=== PATIENT | female | born 1940 | race Caucasian/White ===

== ENCOUNTER 2020-04-08 21:51 | Inpatient (IN) | payer MEDICARE ==
[~2020-04-08] VITALS: Ht 160 cm; Wt 87.2 kg
[~2020-04-08 21:51] MED LIST: CEPH500C2 PO
[2020-04-08 22:51] LABS: BASOPHILS % (AUTO) 0.4 % (0.0-5.0); EOSINOPHILS % (AUTO) 2.1 % (0.0-8.0); HEMATOCRIT 35.6 % (36-48); LYMPHOCYTES % (AUTO) 15.1 % (21.0-51.0); MEAN CORPUSCULAR HEMOGLOBIN 31.1 pg (27.0-33.0); MEAN CORPUSCULAR VOLUME 97.3 fL (79-99); MONOCYTES % (AUTO) 6.2 % (3.0-13.0); NEUTROPHILS % (AUTO) 75.9 % (40.0-77.0); PLATELET COUNT (AUTO) 289 K/uL (130-400); RED BLOOD CELL COUNT(AUTO) 3.66 MIL/uL (4.00-5.50); RED CELL DISTRIBUTION WIDTH 13.6 % (11.0-15.5)
[2020-04-08] MEDS ORDERED: ONDANSETRON 4MG INJ ONE (22:51)
[2020-04-08] MEDS ORDERED: FUROSEMIDE 20MG VIAL ONE (22:51)
[2020-04-08 23:01] LABS: CREATININE 1.4 mg/dL (0.5-1.5); POTASSIUM 3.8 mmol/L (3.5-5.1)
[2020-04-08 23:03] LABS: INR 0.97 (0.85-1.15); PROTHROMBIN TIME 10.6 SEC (9.6-11.6)
[2020-04-08 23:05] LABS: PARTIAL THROMBOPLASTIN TIME 22.8 SEC (26.3-35.5)
[2020-04-08 23:14] LABS: ALBUMIN 3.2 g/dL (3.5-5.0); BILIRUBIN,TOTAL 0.4 mg/dL (0.2-1.0); THYROID STIMULATING HORMONE 1.74 uIU/mL (0.36-3.74); TOTAL PROTEIN, SERUM 6.7 g/dL (6.0-8.3)
[2020-04-08 23:32] LABS: APPEARANCE,URINE Clear (CLEAR); BILIRUBIN,URINE Negative (NEGATIVE); COLOR,URINE Yellow (YELLOW); GLUCOSE, URINE (UA) Negative (NEGATIVE); KETONES,URINE Negative (NEGATIVE); LEUKOCYTE ESTERASE ,URINE Trace (NEGATIVE); NITRATE,URINE Negative (NEGATIVE); OCCULT BLOOD,URINE Negative (NEGATIVE); PH,URINE 5.5 (5.0-8.0); PROTEIN,URINE POS 1+ mg/dL (NEGATIVE); UROBILINOGEN,URINE 0.2 mg/dL (0.2-1.0)
[2020-04-08 23:57] LABS: BACTERIA,URINE Rare /HPF (None Seen); RBC,URINE None Seen /HPF (0-1); SQUAMOUS EPITHELIAL CELL,UR Rare /HPF (0-2); WBC,URINE 0-1 /HPF (0-1)
[2020-04-09] MEDS ORDERED: LORAZEPAM 2 MG/ML 1 ML VIAL ONE (02:02)
[2020-04-09] MEDS ORDERED: DiphenhydrAMINE HCL 50 MG/ML VIAL IV PRN (02:30)
[2020-04-09] MEDS ORDERED: MAG/ALUM/SIMETH 30 ML UDCUP PO PRN (02:30)
[2020-04-09] MEDS ORDERED: ONDANSETRON 4MG INJ IV PRN (02:30)
[2020-04-09] MEDS ORDERED: ACETAMINOPHEN 325 MG TAB PO PRN ×2 (02:30)
[2020-04-09] MEDS ORDERED: DIPHENHYDRAMINE HCL 25 MG CAPSULE PO PRN (02:30)
[2020-04-09] MEDS ORDERED: NITROGLYCERIN 0.4 MG SL TAB SL PRN (02:30)
[2020-04-09] MEDS ORDERED: GUAIFENESIN-DM 200/20 MG 10 ML PO PRN (02:30)
[2020-04-09] MEDS: CEFTRIAXONE 1G VIAL IV SCH (02:30)
[2020-04-09] MEDS ORDERED: LACTULOSE 20 GM/30 ML UDCUP PO PRN (02:30)
[2020-04-09] MEDS ORDERED: LABETALOL 20MG SYG IV PRN ×2 (02:45→12:15)
[2020-04-09] MEDS ORDERED: CEFTRIAXONE 1G VIAL ONE (04:12)
[2020-04-09] MEDS ORDERED: LABETALOL 20MG VIAL IV ONE (04:12)
[2020-04-09] MEDS ORDERED: ACETAMINOPHEN 325 MG TAB ONE (04:52)
[2020-04-09] MEDS ORDERED: ENOXAPARIN SODIUM 40 MG/0.4 ML SYRINGE SQ ONE (08:04)
[2020-04-09] MEDS ORDERED: FUROSEMIDE 20MG VIAL ONE ×2 (08:04→08:15)
[2020-04-09] MEDS ORDERED: ASPIRIN 325 MG TABLET ONE (08:04)
[2020-04-09] MEDS ORDERED: LABETALOL 20MG SYG IV ONE (08:05)
[2020-04-09] MEDS ORDERED: METOPROLOL TARTRATE 25 MG TAB ONE (08:05)
[2020-04-09 10:43] LABS: CREATININE 1.6 mg/dL (0.5-1.5); MAGNESIUM 1.5 mg/dL (1.80-2.40); POTASSIUM 3.7 mmol/L (3.5-5.1)
[2020-04-09] MEDS ORDERED: TERA2CAP82 PO (10:55)
[2020-04-09] MEDS ORDERED: LOSA100T58 PO (10:55)
[2020-04-09] MEDS ORDERED: MAGNESIUM 2GM PREMIX 50ML 50 ML IV SCH (11:00)
[2020-04-09] MEDS ORDERED: PRAM1TAB7 PO (11:13)
[2020-04-09] MEDS ORDERED: DEXL60CA3 PO (11:13)
[2020-04-09] MEDS ORDERED: DULO30CA52 PO (11:13)
[2020-04-09] MEDS ORDERED: BUDE3CAP7 PO (11:13)
[2020-04-09] MEDS ORDERED: ZOLP10TA2 PO (11:13)
[2020-04-09] MEDS ORDERED: HYDR-4060 PO (11:13)
[2020-04-09] MEDS ORDERED: HYDR25 PO (11:13)
[2020-04-09] MEDS ORDERED: MOME17N NS (11:15)
[2020-04-09 12:00] VITALS: BP 177/81
[2020-04-09] MEDS: ASPIRIN 325 MG TABLET PO SCH (12:20)
[2020-04-09] MEDS: METOPROLOL TARTRATE 25 MG TAB PO SCH ×2 (12:20→21:00)
[2020-04-09] MEDS: FUROSEMIDE 40MG VIAL IVP SCH ×2 (12:20→21:28)
[2020-04-09] MEDS: ENOXAPARIN SODIUM 40 MG/0.4 ML SYRINGE SQ SCH (12:21)
[2020-04-09] MEDS ORDERED: DULOXETINE HCL 30 MG CAP PO SCH (15:00)
[2020-04-09 17:25] VITALS: BP 157/57
[2020-04-09] MEDS: LOSARTAN 50 MG TABLET PO SCH (17:55)
[2020-04-09 19:27] VITALS: BP 152/64
[2020-04-09] MEDS: HYDRALAZINE 25MG TABLET PO SCH (21:27)
[2020-04-09] MEDS: PRAMIPEXOLE DI-HCL 0.25 MG TABLET PO SCH (21:28)
[2020-04-09] MEDS: FLUTICASONE PROPIONATE 50MCG/SPRAY 16 GM BOTTLE EN SCH (22:15)
[2020-04-09 23:10] VITALS: BP 103/74
[2020-04-10 03:02] VITALS: BP 160/87
[2020-04-10] MEDS: CEFTRIAXONE 1G VIAL IV SCH (03:50)
[2020-04-10 06:22] LABS: BASOPHILS % (AUTO) 0.3 % (0.0-5.0); EOSINOPHILS % (AUTO) 3.5 % (0.0-8.0); HEMATOCRIT 35.1 % (36-48); LYMPHOCYTES % (AUTO) 18.1 % (21.0-51.0); MEAN CORPUSCULAR HEMOGLOBIN 31.6 pg (27.0-33.0); MEAN CORPUSCULAR HGB CONC 32.2 g/dL (32.0-36.0); MONOCYTES % (AUTO) 8.6 % (3.0-13.0); NEUTROPHILS % (AUTO) 69.2 % (40.0-77.0); PLATELET COUNT (AUTO) 257 K/uL (130-400); RED BLOOD CELL COUNT(AUTO) 3.58 MIL/uL (4.00-5.50); RED CELL DISTRIBUTION WIDTH 13.5 % (11.0-15.5); WHITE BLOOD COUNT (AUTO) 7.2 K/uL (4.8-10.8)
[2020-04-10 06:28] LABS: CREATININE 1.6 mg/dL (0.5-1.5); POTASSIUM 3.2 mmol/L (3.5-5.1)
[2020-04-10] MEDS: FLUTICASONE PROPIONATE 50MCG/SPRAY 16 GM BOTTLE EN SCH (09:00)
[2020-04-10 09:08] VITALS: BP 161/71
[2020-04-10] MEDS ORDERED: LIDOCAINE HCL-MPF 1% 2ML VIAL IV PRN (09:30)
[2020-04-10] MEDS ORDERED: KCL 20 MEQ ERTAB PO PRN (09:30)
[2020-04-10] MEDS ORDERED: POTASSIUM CHLORIDE 10MEQ/100ML 100 ML IV PRN (09:30)
[2020-04-10] MEDS: PRAMIPEXOLE DI-HCL 0.25 MG TABLET PO SCH ×2 (10:51→22:58)
[2020-04-10] MEDS: ENOXAPARIN SODIUM 40 MG/0.4 ML SYRINGE SQ SCH (10:52)
[2020-04-10] MEDS: ASPIRIN 325 MG TABLET PO SCH (10:54)
[2020-04-10] MEDS: HYDRALAZINE 25MG TABLET PO SCH (10:54)
[2020-04-10] MEDS: LOSARTAN 50 MG TABLET PO SCH (10:54)
[2020-04-10] MEDS: PANTOPRAZOLE 40 MG TAB DR PO SCH (10:54)
[2020-04-10] MEDS: METOPROLOL TARTRATE 25 MG TAB PO SCH ×2 (10:54→21:00)
[2020-04-10] MEDS: FUROSEMIDE 40MG VIAL IVP SCH (10:55)
[2020-04-10] MEDS: TERAZOSIN 2 MG CAPSULE PO SCH (10:55)
[2020-04-10 12:00] VITALS: BP 124/35
[2020-04-10] MEDS: POTASSIUM CHLORIDE 10% ELIXIR 20 MEQ/15 ML UDCUP PO PRN ×2 (13:26→16:29)
[2020-04-10] MEDS ORDERED: HYDRALAZINE 25MG TABLET PO SCH (14:00)
[2020-04-10 18:29] VITALS: BP 125/43
[2020-04-10 19:20] VITALS: BP 136/52
[2020-04-10 23:52] VITALS: BP 125/65
[2020-04-11] MEDS: CEFTRIAXONE 1G VIAL IV SCH (02:59)
[2020-04-11 03:14] VITALS: BP 140/59
[2020-04-11 04:12] LABS: BASOPHILS % (AUTO) 0.4 % (0.0-5.0); EOSINOPHILS % (AUTO) 2.5 % (0.0-8.0); HEMATOCRIT 33.2 % (36-48); MEAN CORPUSCULAR HEMOGLOBIN 31.3 pg (27.0-33.0); MEAN CORPUSCULAR HGB CONC 32.2 g/dL (32.0-36.0); MEAN CORPUSCULAR VOLUME 97.1 fL (79-99); MONOCYTES % (AUTO) 7.8 % (3.0-13.0); PLATELET COUNT (AUTO) 223 K/uL (130-400); RED BLOOD CELL COUNT(AUTO) 3.42 MIL/uL (4.00-5.50); RED CELL DISTRIBUTION WIDTH 13.4 % (11.0-15.5); WHITE BLOOD COUNT (AUTO) 7.2 K/uL (4.8-10.8)
[2020-04-11 04:30] LABS: ALBUMIN 2.8 g/dL (3.5-5.0); BILIRUBIN,TOTAL 0.5 mg/dL (0.2-1.0); CREATININE 1.6 mg/dL (0.5-1.5); POTASSIUM 3.6 mmol/L (3.5-5.1); TOTAL PROTEIN, SERUM 6.1 g/dL (6.0-8.3)
[2020-04-11] MEDS: ASPIRIN 325 MG TABLET PO SCH (08:02)
[2020-04-11] MEDS: PANTOPRAZOLE 40 MG TAB DR PO SCH (08:02)
[2020-04-11] MEDS: METOPROLOL TARTRATE 25 MG TAB PO SCH (08:02)
[2020-04-11] MEDS: LOSARTAN 50 MG TABLET PO SCH (08:02)
[2020-04-11] MEDS: ENOXAPARIN SODIUM 40 MG/0.4 ML SYRINGE SQ SCH (08:03)
[2020-04-11] MEDS: PRAMIPEXOLE DI-HCL 0.25 MG TABLET PO SCH (08:07)
[2020-04-11 08:35] VITALS: BP 144/57
[2020-04-11] MEDS ORDERED: NIFEDIPINE ER 30 MG TAB PO SCH (09:00)
[2020-04-11] MEDS ORDERED: FLUTICASONE PROPIONATE 50MCG/SPRAY 16 GM BOTTLE EN SCH (09:00)
[2020-04-11] MEDS: TERAZOSIN 2 MG CAPSULE PO SCH (11:28)
[2020-04-11 13:13] VITALS: BP 154/58
[2020-04-11 15:02] VITALS: BP 146/68
== END 2020-04-11 16:45 | disposition home or self-care (01) | DRG 291 ==
LOC: EDH 21:51 → EDHIP 04-09 02:30 → 4BH 04-09 09:24
PROVIDERS: ADMIT Family Medicine; ATTEND Family Medicine
DX: I13.0 Hypertensive heart and chronic kidney disease with heart failure and stage 1 through stage 4 chronic kidney disease, or unspecified chronic kidney disease (principal); I50.33 Acute on chronic diastolic (congestive) heart failure; N39.0 Urinary tract infection, site not specified; I16.1 Hypertensive emergency; N17.9 Acute kidney failure, unspecified; E87.70 Fluid overload, unspecified; N18.9 Chronic kidney disease, unspecified; G89.29 Other chronic pain; Z90.710 Acquired absence of both cervix and uterus; Z90.49 Acquired absence of other specified parts of digestive tract
CPT/HCPCS: 36415; 71045; 71250; 80048; 80053; 81001; 82550; 82948; 83690; 83735; 83880; 84145; 84443; 84484; 85025; 85610; 85730; 87088; 93005; 93306; 93356; 93970; G0378; J0696; J1650; J1940; J2060; J2405; J3475; J3490